=== PATIENT | female | born 1985 | race Two or more races ===

== ENCOUNTER 2021-12-28 19:02 | Emergency (ER) | payer OTHER ==
[~2021-12-28] VITALS: Ht 162.6 cm; Wt 72.6 kg
[2021-12-28 20:56] VITALS: BP 138/82
[2021-12-28] MEDS ORDERED: HYDROcodone-ACET 5/325MG TAB PO ONE (21:30)
[2021-12-28] MEDS ORDERED: diazePAM 5 MG TAB PO ONE (21:30)
[2021-12-28] MEDS ORDERED: HYDR-4902 PO (22:56)
[2021-12-28] MEDS ORDERED: CYCL-838 PO (22:56)
== END 2021-12-28 23:10 | disposition home or self-care (01) ==
LOC: ER 19:02
DX: S33.5XXA Sprain of ligaments of lumbar spine, initial encounter (principal); S23.3XXA Sprain of ligaments of thoracic spine, initial encounter; M62.838 Other muscle spasm; V49.49XA Driver injured in collision with other motor vehicles in traffic accident, initial encounter; Y93.89 Activity, other specified; Y92.410 Unspecified street and highway as the place of occurrence of the external cause; Y99.8 Other external cause status
CPT/HCPCS: 70450; 72125; 72128; 72131